=== PATIENT | female | born 1980 | race Caucasian/White ===

== ENCOUNTER → 2023-02-11 | Outpatient (CLI) | payer BC ==
[2023-02-11 10:57] VITALS: BP 134/96; PULSE 99; RESP 16; TEMP 98
--- NOTE | 2023-02-11 11:34 | P.GSHP ---
History of Present Illness H&P Date: 02/11/23 Chief Complaint: breast pain Saloni is a 42 year old self referred patient with a complaint of breast pain. She had a bilateral mammogram on 12-09-22 which was BIRAD 2, and a bilateral ultrasound with aspiration of multiple cyst bilaterally on 12-09-22. No cytology was obtained. Has had cyst aspirated multiple times in the past. Usually aspiration results in decreased pain for approximately 6 months. However, this time it appears that more cyst have recurred and the pain has not resolved. She has been seen by Dr. Dari Rao a breast surgeon. She has never had any breast biopsies. She's never had any surgery on her breast. She has not had a period for 12 years. She has a Mirena IUD in place, this typically has progesterone slow-release function. On a scale of 1 to 10 the pain comes in 8 or 9 limiting her physical activity. At this present time it is approximately a 3. Caffeine: One cup of coffee per day Nicotine: vapes, stopped cigarettes in 2006 Chocolate: Occasional Dianna every 5 years, last time placed in 2019 BCP: < 2 years DEPO: 1 years cyst in her ovaries Hormonal History: menarche: 11 , breast fed: yes, age at first : 27 periods regular LMP: 11 years ago Family History: none Surgical History: 2 tonsil Hemorrhoidectomy Medical history: none Social History: nicotine: vape daily alcohol: none drugs: none - Constitutional Constitutional: Reports sweats - EENT Eyes: denies blurred vision, denies pain Ears: deny: decreased hearing, tinnitus Ears, nose, mouth and throat: Reports headache, Denies sore throat - Breasts Breasts: bilateral: as per HPI - Cardiovascular Cardiovascular: Denies chest pain, Denies shortness of breath - Respiratory Respiratory: Denies cough, Denies 7 - Gastrointestinal Gastrointestinal: Denies abdominal pain, Denies diarrhea, Denies nausea, Denies vomiting - Genitourinary (Female) Genitourinary: Denies dysuria, Denies hematuria - Menstruation Menstruation: Reports as per HPI - Integumentary Integumentary: Denies pruritus, Denies rash - Neurological Neurological: Denies numbness, Denies weakness - Psychiatric Psychiatric: Reports anxiety, Reports depression - Endocrine Endocrine: Reports fatigue - Hematologic/Lymphatic Comment: none - Allergic/Immunologic Allergic/Immunologic: Reports seasonal allergies Past Medical History Additional Past Medical History / Comment(s): depression History of Any Multi-Drug Resistant Organisms: None Reported Past Surgical History: Section, Tonsillectomy Additional Past Surgical History / Comment(s): section x2 Past Anesthesia/Blood Transfusion Reactions: No Reported Reaction Past Psychological History: Anxiety, Depression Smoking Status: Vaper Past Alcohol Use History: None Reported Past Drug Use History: None Reported Medications and Allergies Home Medications Medication Instructions Recorded Confirmed Type Venlafaxine HCl ER [Effexor Xr] 75 mg PO DAILY 02/11/23 02/11/23 History Allergies Allergy/AdvReac Type Severity Reaction Status Date / Time metronidazole [From Flagyl] Allergy Rash/Hives Verified 02/11/23 10:53 Penicillins Allergy Rash/Hives Verified 02/11/23 10:53 Surgical - Exam Vital Signs Temp Pulse Resp BP Pulse Ox 98.0 F 99 16 134/96 99 02/11/23 10:53 02/11/23 10:53 02/11/23 10:53 02/11/23 10:53 02/11/23 10:53 - General moderate distress - Eyes normal ocular movement - Neck trachea midline - Respiratory normal respiratory effort, clear to auscultation - Cardiovascular Rhythm: regular Heart Sounds: normal: S1, S2 - Abdomen Abdomen: soft, non tender, no guarding, no rigid, no rebound - Integumentary normal turgor - Neurologic no disoriented, no combative - Musculoskeletal normal gait, normal posture - Psychiatric oriented to time, oriented to person, oriented to place, speech is normal, memory intact Breast Exam: BRA: 34DD Inspection: Bilateral grade 2 ptosis Palpation: Right breast: Multiple positional exam fibrocystic changes appears to have cystic-like lesions in the approximate 12 o'clock position as well as the 6 o'clock position Right axilla: No adenopathy of concern Left breast: Multi-positional exam fibrocystic changes appears to have cystic lesion approximately the 9 o'clock position, Left axilla: No adenopathy of concern Both breasts are very tender to palpation no discrete masses of concern are palpated in either breast Results Mammogram and ultrasound reports reviewed Assessment and Plan Assessment: Impression: Mastodynia Multiple bilateral breast cysts Progesterone releasing IUD in place Plan: Ultrasound-guided cyst aspiration of the cyst that are painful at this present time The patient is going to have her IUD removed The patient has been at counseled on stopping all caffeine intake as well as nicotine The patient will attempt primrose oil and vitamin E The patient will follow up after the above for possible tamoxifen therapy CC: Kalpana Kc
== END ==
LOC: WWCWWP 10:38
PROVIDERS: ATTEND Surgery
DX: N60.01 Solitary cyst of right breast (principal); N60.02 Solitary cyst of left breast; N64.4 Mastodynia; Z88.0 Allergy status to penicillin; Z88.8 Allergy status to other drugs, medicaments and biological substances; F32.A Depression, unspecified

== ENCOUNTER → 2023-03-17 | Day surgery (SDC) | payer BC ==
--- NOTE | 2023-03-18 13:17 | USB ---
Risk Values: Venecia 5 year model risk: 0.5%. NCI Lifetime model risk: 6.5%. Pathology Description: Location: 3 o'clock. Pathology Description: Location: 3 o'clock. Pathology Description: Location: 11 o'clock. Pathology Description: Location: 11 o'clock. The ultrasound guided cyst aspiration procedure was explained to the patient. The risks, benefits, alternatives were discussed. An informed consent was then obtained. A time out was performed. The patient was placed in supine positioning for imaging and for the procedure. The overlying skin was prepped with ChloraPrep and sterilely draped in usual sterile fashion. The most painful sites of the patient's bilateral breasts were scanned. The 3 dominant cysts in the upper outer aspect of the left breast, measuring up to 1.4 cm (3:00 position) are identified for aspiration. The 2 dominant cysts in the upper outer aspect of the right breast measuring up to 2.0 cm are identified for aspiration (11:00 position). A total of 10 ml 1% lidocaine was used as anesthetic into the skin and deeper breast tissue up to area of concern at the site of concern in both breasts. Under ultrasound guidance, an 18-gauge spinal needle was advanced into each cyst and aspiration yielded just under 5 mL of fluid from each breast . Fluid in the left breast was muddy brown. Fluid from the right breast was dark brown with some debris. Fluid was discarded. No clip was deposited. Good hemostasis was obtained with direct pressure. The patient tolerated the procedure well without any immediate complication. The patient was discharged to home in stable condition. IMPRESSION: Successful ultrasound guided cyst aspiration of both breasts for symptomatic relief (3 cysts in the left breast and 2 cysts in the right breast). Fluid was discarded. No clip placed. Just under 5 mL total fluid from each breast. Pathology Results: Specimen not sent to lab. Electronically signed and approved by: Shanika Marin M.D. Radiologist
== END ==
LOC: RADUSWWP 12:45
PROVIDERS: ATTEND Surgery
DX: N60.01 Solitary cyst of right breast (principal); N60.02 Solitary cyst of left breast
CPT/HCPCS: 76942

== ENCOUNTER → 2023-09-08 | Outpatient (CLI) | payer BC ==
--- NOTE | 2023-09-08 15:07 | P.PN ---
Subjective Progress Note Date: 09/08/23 Principal diagnosis: breast pain History of Present Illness H&P Date: 02/11/23 Chief Complaint: breast pain Saloni is a 42 year old self referred patient with a complaint of breast pain. She had a bilateral mammogram on 12-09-22 which was BIRAD 2, and a bilateral ultrasound with aspiration of multiple cyst bilaterally on 12-09-22. No cytology was obtained. Has had cyst aspirated multiple times in the past. Usually aspiration results in decreased pain for approximately 6 months. However, this time it appears that more cyst have recurred and the pain has not resolved. She has been seen by Dr. Dari Rao a breast surgeon. She has never had any breast biopsies. She's never had any surgery on her breast. She has not had a period for 12 years. She has a Mirena IUD in place, this typically has progesterone slow-release function. On a scale of 1 to 10 the pain comes in 8 or 9 limiting her physical activity. At this present time it is approximately a 3. She had additional cyst aspirated on 03-17-23 about 5 cc of fluid was aspirated from each breast, no fluid was sent, and no clips were placed. She stopped both the nicotine (vaping) and caffeine until June but the cysts returned so she restarted. She also stopped the vitamin E and [place] oil. Her IUD was removed April 05. She can feel nodules in both breast since May, they are getting bigger. Her periods are regular now and the pain is not related to her periods. Caffeine: One cup of coffee per day Nicotine: vapes, stopped cigarettes in 2006 Chocolate: Occasional Dianna every 5 years, last time placed in 2019; this was removed in April 05 2023 BCP: < 2 years DEPO: 1 years cyst in her ovaries Hormonal History: menarche: 11 , breast fed: yes, age at first : 27 periods regular LMP: 11 years ago Family History: none Surgical History: 2 tonsil Hemorrhoidectomy internal hemorrhoid removed Medical history: none Social History: nicotine: vape daily alcohol: none drugs: none - Constitutional Constitutional: Reports sweats - EENT Eyes: denies blurred vision, denies pain Ears: deny: decreased hearing, tinnitus Ears, nose, mouth and throat: Reports headache, Denies sore throat - Breasts Breasts: bilateral: as per HPI - Cardiovascular Cardiovascular: Denies chest pain, Denies shortness of breath - Respiratory Respiratory: Denies cough - Gastrointestinal Gastrointestinal: Denies abdominal pain, Denies diarrhea, Denies nausea, Denies vomiting - Genitourinary (Female) Genitourinary: Denies dysuria, Denies hematuria - Menstruation Menstruation: Reports as per HPI - Integumentary Integumentary: Denies pruritus, Denies rash - Neurological Neurological: Denies numbness, Denies weakness - Psychiatric Psychiatric: Reports anxiety, Reports depression - Endocrine Endocrine: Reports fatigue - Hematologic/Lymphatic Comment: none - Allergic/Immunologic Allergic/Immunologic: Reports seasonal allergies Past Medical History Additional Past Medical History / Comment(s): depression History of Any Multi-Drug Resistant Organisms: None Reported Past Surgical History: Section, Tonsillectomy Additional Past Surgical History / Comment(s): section x2 Past Anesthesia/Blood Transfusion Reactions: No Reported Reaction Past Psychological History: Anxiety, Depression Smoking Status: Vaper Past Alcohol Use History: None Reported Past Drug Use History: None Reported Medications and Allergies Home Medications Medication Instructions Recorded Confirmed Type Venlafaxine HCl ER [Effexor Xr] 75 mg PO DAILY 02/11/23 02/11/23 History Allergies Allergy/AdvReac Type Severity Reaction Status Date / Time metronidazole [From Flagyl] Allergy Rash/Hives Verified 02/11/23 10:53 Penicillins Allergy Rash/Hives Verified 02/11/23 10:53 Objective - Constitutional General appearance: Present: cooperative - EENT Eyes: Present: EOMI ENT: Present: hearing grossly normal - Neck Neck: Present: normal ROM - Respiratory Respiratory: bilateral: CTA - Cardiovascular Heart sounds: normal: S1, S2 - Integumentary Integumentary: Present: normal turgor - Musculoskeletal Musculoskeletal: Present: gait normal - Psychiatric Psychiatric: Present: A&O x's 3, appropriate affect, intact judgment & insight - Additional findings Additional findings: Breast Exam: BRA: 34DD Inspection: Bilateral grade 2 ptosis Palpation: Right breast: Multi-positional exam fibrocystic changes appears to have cystic- like lesions in the approximate 12 o'clock position as well as the 6 o'clock position, these are small in nature and nothing which I would aspirate today without ultrasound guidance Right axilla: No adenopathy of concern Left breast: Multi-positional exam fibrocystic changes appears to have cystic lesions throughout the plastic and which are small in nature nothing which I would aspirate without ultrasound guidance Left axilla: No adenopathy of concern Assessment and Plan Assessment: Impression: Mastodynia Multiple bilateral breast cysts Progesterone releasing IUD removed in March Patient did stop vaping and caffeine however the cyst seemed to recur so she restarted Plan: Bilateral Ultrasound-guided cyst aspiration of the cyst that are painful at this present time The patient has been at counseled on stopping all caffeine intake and vaping The patient will attempt primrose oil and vitamin E The patient will follow up after the above for possible tamoxifen therapy appointment with medical oncology to consider tamoxifen secondary to the mastodynia bilateral mammogram in November 2023 with appointment CC: Kalpana Kc
[2023-09-08 15:11] VITALS: BP 122/84; PULSE 87; RESP 16; TEMP 98.9
== END ==
LOC: WWCWWP 14:30
PROVIDERS: ATTEND Surgery
DX: N64.4 Mastodynia (principal); N60.01 Solitary cyst of right breast; N60.02 Solitary cyst of left breast; F17.290 Nicotine dependence, other tobacco product, uncomplicated; F32.A Depression, unspecified; F41.9 Anxiety disorder, unspecified; Z88.0 Allergy status to penicillin; Z88.1 Allergy status to other antibiotic agents

== ENCOUNTER → 2023-10-14 | Outpatient (CLI) | payer BC ==
--- NOTE | 2023-10-14 13:43 | USB ---
Reason for Exam: Clinical finding. Patient History: 03/17/2023, US breast aspiration ea add LT on the Left side. 03/17/2023, US breast aspiration ea add LT on the Left side. 03/17/2023, US breast aspiration single RT on the Right side. 03/17/2023, US breast aspiration ea add RT on the Right side. 03/17/2023, US breast aspiration single LT on the Left side. Risk Values: Venecia 5 year model risk: 0.5%. NCI Lifetime model risk: 6.4%. Technique: Method: Whole Breast Handheld. Findings: The whole breast of both breasts, the axilla of both breasts and the retroareolar of both breasts were scanned. A complete US of all four quadrants of the breast , axilla, and retro-areolar region were reviewed. On the right, numerous cysts are present, largest located at the 10:00 position measuring 1.9 cm. Dense tissue is present throughout. On the left, numerous cysts are present, largest located at the 1:00 position measuring up to 2.7 cm. Dense tissues present throughout. No axillary lymphadenopathy. Patient due for annual exam in 2 months. This can be performed in diagnostic clinic. Overall Assessment: Probably benign, BI-RAD 3 Management: Diagnostic Mammogram of both breasts in 2 months. In time for the patient's annual study. A clinical breast exam by your physician is recommended on an annual basis and results should be correlated with mammographic findings. This exam should not preclude additional follow-up of suspicious palpable abnormalities. Results were given to the patient verbally at the time of exam. Electronically signed and approved by: Shanika Marin M.D. Radiologist
== END | disposition home or self-care (01) ==
LOC: RADUSWWP 12:09
PROVIDERS: ATTEND Surgery
DX: N63.10 Unspecified lump in the right breast, unspecified quadrant (principal); N63.20 Unspecified lump in the left breast, unspecified quadrant

== ENCOUNTER → 2023-11-17 | Day surgery (SDC) | payer BC ==
--- NOTE | 2023-11-21 15:27 | USB ---
Risk Values: Venecia 5 year model risk: 0.5%. NCI Lifetime model risk: 6.4%. Pathology Description: Location: 12 o'clock. Pathology Description: Location: 11 o'clock. Pathology Description: Location: 11 o'clock. Pathology Description: Location: 3 o'clock. Pathology Description: Location: 3 o'clock. Pathology Description: Location: 2 o'clock. Pathology Description: Location: 2 o'clock. Pathology Results: Specimen not sent to lab. The ultrasound guided cyst aspiration procedure was explained to the patient. The risks, benefits, alternatives were discussed. An informed consent was then obtained. A time out was performed. Innumerable bilateral cysts are present scattered throughout dense fibroglandular tissue. The largest located on either side measuring up to 2.1 cm and as small as 6 mm are targeted for aspiration. Cysts in the region of greatest pain as indicated by the patient are targeted. These are located mostly along the lateral aspects of the breasts, on the right at 11 and 12:00 and on the left at 2 and 3:00. The patient was placed in supine positioning for imaging and for the procedure. The overlying skin was prepped with betadine and sterilely draped in usual sterile fashion. 6 ml 1% lidocaine was used as anesthetic into the skin and deeper breast tissue within each breast. RIGHT: Under ultrasound guidance, multiple passes were made in the right breast in order to aspirate a total of 7 cysts with an 18-gauge spinal needle. LEFT: Subsequently, multiple passes were made under ultrasound guidance in the left breast in order to aspirate a total of 10 cysts with an 18-gauge spinal needle. Once the needle was removed, hemostasis was obtained and dressing placed. A total of 25 mL brown fluid was aspirated and discarded. No clip was placed. No postprocedure mammogram. The patient tolerated the procedure well without any immediate complication. The patient was discharged to home in stable condition. IMPRESSION: Successful ultrasound guided multiple cyst aspiration, a total of 7 cysts on the right and a total of 10 cysts on the left. Cysts ranging in size from 6 mm up to 2.1 cm along the most symptomatically painful sites in either breast. A total of 25 mL brown fluid was aspirated and discarded. Procedure performed for symptomatic relief. No specimens were sent. Management: Diagnostic Mammogram of both breasts in 1 month. Patient had her last outside mammogram on 12/12/2022. Recommend bilateral diagnostic mammograms in 1 month. Please obtain outside priors for comparison. Further clinical management of patient's bilateral breast pain. Electronically signed and approved by: Shanika Marin M.D. Radiologist
== END ==
LOC: RADUSWWP 12:42
PROVIDERS: ATTEND Surgery
DX: N63.0 Unspecified lump in unspecified breast (principal)
CPT/HCPCS: 76942

== ENCOUNTER → 2023-12-12 | Outpatient (CLI) | payer BC ==
--- NOTE | 2023-12-20 20:24 | MM ---
Reason for Exam: Additional evaluation requested from prior study. Last screening mammogram was performed 12 month(s) ago. Patient History: Menarche at age 12. First Full-Term at age 27. Patient has history of breast feeding. Patient used Hormonal Contraceptives for 15 years. 11/17/2023, US breast aspiration ea add RT on the Right side. 11/17/2023, US breast aspiration ea add RT on the Right side. 11/17/2023, US breast aspiration ea add RT on the Right side. 11/17/2023, US breast aspiration single RT on the Right side. 11/17/2023, US breast aspiration ea add LT on the Left side. 11/17/2023, US breast aspiration ea add LT on the Left side. 11/17/2023, US breast aspiration ea add LT on the Left side. 11/17/2023, US breast aspiration single LT on the Left side. 03/17/2023, US breast aspiration ea add LT on the Left side. 03/17/2023, US breast aspiration ea add LT on the Left side. 03/17/2023, US breast aspiration single RT on the Right side. 03/17/2023, US breast aspiration ea add RT on the Right side. 03/17/2023, US breast aspiration single LT on the Left side. Risk Values: Venecia 5 year model risk: 0.8%. NCI Lifetime model risk: 9.7%. Prior Study Comparison: 01/06/2021 Bilateral Diagnostic Mammogram, [facility]. 06/10/2021 Bilateral Screening Mammogram, [facility]. 06/16/2022 Bilateral Screening Mammogram, [facility]. 12/09/2022 Bilateral Diagnostic Mammogram, [facility]. 12/09/2022 Bilateral Diagnostic Ultrasound, [facility]. 10/14/2023 Bilateral US breast BILAT, [facility]. Tissue Density: The breasts are extremely dense, which lowers the sensitivity of mammography. Findings: The pattern is symmetrical. No significant interval change is evident. There are scattered punctate calcifications present bilaterally. No new suspicious cluster of microcalcifications is evident No suspicious groups of microcalcifications, spiculated or lobular masses, architectural distortion or other secondary signs of malignancy are mammographically apparent. Overall Assessment: Benign, BI-RAD 2 Management: Screening Mammogram of both breasts in 1 year. A negative mammogram report should not preclude additional follow up of suspicious palpable abnormalities. Patient should continue monthly self breast exam. A clinical breast exam by your physician is recommended on an annual basis and results should be correlated with mammographic findings. Electronically signed and approved by: Pranav Hutson D.O. Radiologis
== END | disposition home or self-care (01) ==
LOC: RADMAMWWP 10:42
PROVIDERS: ATTEND Surgery
DX: R92.8 Other abnormal and inconclusive findings on diagnostic imaging of breast (principal); R92.1 Mammographic calcification found on diagnostic imaging of breast
CPT/HCPCS: 77062; 77066

== ENCOUNTER → 2024-01-05 | Outpatient (CLI) | payer BC ==
--- NOTE | 2024-01-05 13:38 | P.PN ---
Subjective Progress Note Date: 01/05/24 Principal diagnosis: breast pain History of Present Illness H&P Date: 01-05-24 Chief Complaint: breast pain Saloni is a 43 year old self referred patient with a complaint of breast pain. She had a bilateral mammogram on 12-09-22 which was BIRAD 2, and a bilateral ultrasound with aspiration of multiple cyst bilaterally on 12-09-22. No cytology was obtained. Has had cyst aspirated multiple times in the past. Usually aspiration results in decreased pain for approximately 6 months. However, this time it appears that more cyst have recurred and the pain has not resolved. She has been seen by Dr. Dari Rao a breast surgeon. She has never had any breast biopsies. She's never had any surgery on her breast. She has not had a period for 12 years. She has a Mirena IUD in place, this typically has progesterone slow-release function. On a scale of 1 to 10 the pain comes in 8 or 9 limiting her physical activity. At this present time it is approximately a 3. She had additional cyst aspirated on 03-17-23 about 5 cc of fluid was aspirated from each breast, no fluid was sent, and no clips were placed. In the past she stopped both nicotine (vaping) and caffeine but the cysts returned so she restarted. She also stopped the vitamin E and [place] oil. Her IUD was removed April 05, 2023. She can feel nodules in both breast since May, they are getting bigger. Her periods are regular now and the pain is not related to her periods. patient underwent a bilateral breast ultrasound on 10-14-2023. The ultrasound revealed bilateral breast cysts. I have called the patienton 10-27-23 with the results. She states she continues to have breast pain and would like to have the cyst drained. We are asking that she be scheduled for cyst drainage. Additionally the patient is having pain and would like to consider tamoxifen and an appointment with medical oncology has been recommended. If the patient does not have relief with cyst drainage and tamoxifen she has requested bilateral mastectomies. I will see her again in November 2023 after her mammogram. In the interim 1. ultrasound-guided cyst drainage 2. appointment medical oncology for consideration of tamoxifen 3. follow-up in November after bilateral mammogram 4. lifestyle modifications abstaining from nicotine/caffeine/consider primrose oil bilateral mammogram on 12-02-23 BIRAD 2 personally reviewed very dense She had cyst drained in Oct, but within two weeks the pain recurred. The pain is a 6-7 on a constant basis. It affects her daily life. It affects her ability to sleep. It is very debilitating for her secondary to the pain. The painis not cyclical in nature. The pain is stabbing and constant bilateral. It is worse with movement. She is not complaining of any fever or chills. She does not have any history of trauma to her breast. She has never had any surgery on her breast. The pain is significant enough that she would like to have the breast removed. She is not interested in reconstruction. Caffeine: One cup of coffee per day Nicotine: vapes, stopped cigarettes in 2006 Chocolate: Occasional Dianna every 5 years, last time placed in 2019; this was removed in April 05 2023 BCP: < 2 years DEPO: 1 years cyst in her ovaries Hormonal History: menarche: 11 , breast fed: yes, age at first : 27 periods regular LMP: 11 years ago Family History: none Surgical History: 2 tonsil Hemorrhoidectomy internal hemorrhoid removed Medical history: none Social History: nicotine: vape daily alcohol: none drugs: none - Constitutional Constitutional: Reports sweats - EENT Eyes: denies blurred vision, denies pain Ears: deny: decreased hearing, tinnitus Ears, nose, mouth and throat: Reports headache, Denies sore throat - Breasts Breasts: bilateral: as per HPI - Cardiovascular Cardiovascular: Denies chest pain, Denies shortness of breath - Respiratory Respiratory: Denies cough - Gastrointestinal Gastrointestinal: Denies abdominal pain, Denies diarrhea, Denies nausea, Denies vomiting - Genitourinary (Female) Genitourinary: Denies dysuria, Denies hematuria - Menstruation Menstruation: Reports as per HPI - Integumentary Integumentary: Denies pruritus, Denies rash - Neurological Neurological: Denies numbness, Denies weakness - Psychiatric Psychiatric: Reports anxiety, Reports depression - Endocrine Endocrine: Reports fatigue - Hematologic/Lymphatic Comment: none - Allergic/Immunologic Allergic/Immunologic: Reports seasonal allergies Past Medical History Additional Past Medical History / Comment(s): depression History of Any Multi-Drug Resistant Organisms: None Reported Past Surgical History: Section, Tonsillectomy Additional Past Surgical History / Comment(s): section x2 Past Anesthesia/Blood Transfusion Reactions: No Reported Reaction Past Psychological History: Anxiety, Depression Smoking Status: Vaper Past Alcohol Use History: None Reported Past Drug Use History: None Reported Medications and Allergies Home Medications Medication Instructions Recorded Confirmed Type Venlafaxine HCl ER [Effexor Xr] 75 mg PO DAILY 02/11/23 02/11/23 History Allergies Allergy/AdvReac Type Severity Reaction Status Date / Time metronidazole [From Flagyl] Allergy Rash/Hives Verified 02/11/23 10:53 Penicillins Allergy Rash/Hives Verified 02/11/23 10:53 Objective - Vital Signs Vital signs: Intake & Output 01/04/24 01/05/24 01/05/24 18:59 06:59 18:59 Weight 63.503 kg - Constitutional General appearance: Present: cooperative - EENT Eyes: Present: EOMI ENT: Present: hearing grossly normal - Neck Neck: Present: normal ROM - Respiratory Respiratory: bilateral: CTA - Cardiovascular Heart sounds: normal: S1, S2 - Gastrointestinal General gastrointestinal: Present: soft - Integumentary Integumentary: Present: normal turgor - Musculoskeletal Musculoskeletal: Present: gait normal - Psychiatric Psychiatric: Present: A&O x's 3, appropriate affect, intact judgment & insight - Additional findings Additional findings: Breast Exam: BRA: 34DD Inspection: Bilateral grade 2 ptosis Palpation: Right breast: Multi-positional exam fibrocystic changes, very tender to palpation throughout the breast Right axilla: No adenopathy of concern Left breast: Multi-positional exam fibrocystic tender to palpation throughout the breast Left axilla: No adenopathy of concern Assessment and Plan Assessment: Impression: Mastodynia affecting daily life Multiple bilateral breast cysts Progesterone releasing IUD removed in March, Patient did stop vaping and caffeine however the cyst seemed to recur so she restarted; she is going to stop vaping again and stop caffeine at this time Plan: The patient has been at counseled on stopping all caffeine intake and vaping The patient will attempt primrose oil and vitamin E The patient will follow up after the above for possible tamoxifen therapy appointment with medical oncology to consider tamoxifen secondary to the mastodynia bilateral mammogram in November 2023 with appointment, mammogram reveals very dense breast I would recommend an MRI if she is not going to have a bilateral mastectomy The patient would like to have a bilateral mastectomy secondary to the severe breast pain She is not interested in reconstruction She is not transgender and identifies as she her. She is a biologic female CC: Kalpana Kc
[2024-01-05 13:40] VITALS: BP 123/81; PULSE 82; RESP 17; TEMP 97.9
== END ==
LOC: WWCWWP 12:45
PROVIDERS: ATTEND Surgery
DX: R92.8 Other abnormal and inconclusive findings on diagnostic imaging of breast (principal); N64.4 Mastodynia; N60.01 Solitary cyst of right breast; N60.02 Solitary cyst of left breast; F17.290 Nicotine dependence, other tobacco product, uncomplicated; Z88.0 Allergy status to penicillin; Z88.1 Allergy status to other antibiotic agents

== ENCOUNTER → 2024-03-28 | Outpatient (CLI) | payer BC ==
[2024-03-28 13:42] VITALS: BP 107/80; PULSE 72; RESP 16; TEMP 98.1
--- NOTE | 2024-03-28 14:01 | P.PN ---
Subjective Progress Note Date: 03/28/24 Principal diagnosis: severe mystodynia Subjective Progress Note Date: 01/05/24 Principal diagnosis: breast pain History of Present Illness H&P Date: 01-05-24 Chief Complaint: breast pain Saloni is a 43 year old self referred patient with a complaint of breast pain. She had a bilateral mammogram on 12-09-22 which was BIRAD 2, and a bilateral ultrasound with aspiration of multiple cyst bilaterally on 12-09-22. No cytology was obtained. Has had cyst aspirated multiple times in the past. Usually aspiration results in decreased pain for approximately 6 months. However, this time it appears that more cyst have recurred and the pain has not resolved. She has been seen by Dr. Dari Rao a breast surgeon. She has never had any breast biopsies. She's never had any surgery on her breast. She has not had a period for 12 years. She has a Mirena IUD in place, this typically has progesterone slow-release function. On a scale of 1 to 10 the pain comes in 8 or 9 limiting her physical activity. At this present time it is approximately a 3. She had additional cyst aspirated on 03-17-23 about 5 cc of fluid was aspirated from each breast, no fluid was sent, and no clips were placed. In the past she stopped both nicotine (vaping) and caffeine but the cysts returned so she restarted. She also stopped the vitamin E and [place] oil. Her IUD was removed April 05, 2023. She can feel nodules in both breast since May, they are getting bigger. Her periods are regular now and the pain is not related to her periods. patient underwent a bilateral breast ultrasound on 10-14-2023. The ultrasound revealed bilateral breast cysts. I have called the patient on 10-27-23 with the results. She states she continues to have breast pain and would like to have the cyst drained. We are asking that she be scheduled for cyst drainage. Additionally the patient is having pain and would like to consider tamoxifen and an appointment with medical oncology has been recommended. If the patient does not have relief with cyst drainage and tamoxifen she has requested bilateral mastectomies. I will see her again in November 2023 after her mammogram. In the interim 1. ultrasound-guided cyst drainage 2. appointment medical oncology for consideration of tamoxifen 3. follow-up in November after bilateral mammogram 4. lifestyle modifications abstaining from nicotine/caffeine/consider primrose oil bilateral mammogram on 12-02-23 GALA Landeros personally reviewed very dense She had cyst drained in Oct, but within two weeks the pain recurred. The pain is a 6-7 on a constant basis. It affects her daily life. It affects her ability to sleep. It is very debilitating for her secondary to the pain. The painis not cyclical in nature. The pain is stabbing and constant bilateral. It is worse with movement. She is not complaining of any fever or chills. She does not have any history of trauma to her breast. She has never had any surgery on her breast. The pain is significant enough that she would like to have the breast removed. She is not interested in reconstruction. 03-28-24 Bilateral breast pain affecting daily living. note medical oncology 01-13-24 reviewed: conplaining of severe bresat congestion and pain and multiple bresat cyst aspirated in the past; recommended tamoxifen She used the tamoxifen for several months without resolution of any breast pain. The pain continues to be incapacitating on a daily basis. It would be about a 7 at this time. Despite stopping caffeine intake and vaping. She is well aware that she does not have any malignant disease in her breast but secondary to the breast pain would like to have bilateral mastectomies. She is not interested in seeing a plastic surgery or having reconstruction. Caffeine: One cup of coffee per day Nicotine: vapes, stopped cigarettes in 2006 Chocolate: Occasional Dianna every 5 years, last time placed in 2019; this was removed in April 05 2023 BCP: < 2 years DEPO: 1 years cyst in her ovaries Hormonal History: menarche: 11 , breast fed: yes, age at first : 27 periods regular LMP: 11 years ago Family History: none Surgical History: 2 tonsil Hemorrhoidectomy internal hemorrhoid removed Medical history: none Social History: nicotine: vape daily alcohol: none drugs: none - Constitutional Constitutional: Reports sweats - EENT Eyes: denies blurred vision, denies pain Ears: deny: decreased hearing, tinnitus Ears, nose, mouth and throat: Reports headache, Denies sore throat - Breasts Breasts: bilateral: as per HPI - Cardiovascular Cardiovascular: Denies chest pain, Denies shortness of breath - Respiratory Respiratory: Denies cough - Gastrointestinal Gastrointestinal: Denies abdominal pain, Denies diarrhea, Denies nausea, Denies vomiting - Genitourinary (Female) Genitourinary: Denies dysuria, Denies hematuria - Menstruation Menstruation: Reports as per HPI - Integumentary Integumentary: Denies pruritus, Denies rash - Neurological Neurological: Denies numbness, Denies weakness - Psychiatric Psychiatric: Reports anxiety, Reports depression - Endocrine Endocrine: Reports fatigue - Hematologic/Lymphatic Comment: none - Allergic/Immunologic Allergic/Immunologic: Reports seasonal allergies Past Medical History Additional Past Medical History / Comment(s): depression History of Any Multi-Drug Resistant Organisms: None Reported Past Surgical History: Section, Tonsillectomy Additional Past Surgical History / Comment(s): section x2 Past Anesthesia/Blood Transfusion Reactions: No Reported Reaction Past Psychological History: Anxiety, Depression Smoking Status: Vaper Past Alcohol Use History: None Reported Past Drug Use History: None Reported Medications and Allergies Home Medications Medication Instructions Recorded Confirmed Type Venlafaxine HCl ER [Effexor Xr] 75 mg PO DAILY 02/11/23 02/11/23 History Allergies Allergy/AdvReac Type Severity Reaction Status Date / Time metronidazole [From Flagyl] Allergy Rash/Hives Verified 02/11/23 10:53 Penicillins Allergy Rash/Hives Verified 02/11/23 10:53 Objective - Vital Signs Vital signs: Intake & Output 03/27/24 03/28/24 03/28/24 18:59 06:59 18:59 Weight 59.874 kg - Constitutional General appearance: Present: cooperative - EENT ENT: Present: hearing grossly normal - Neck Neck: Present: normal ROM - Respiratory Respiratory: bilateral: CTA - Cardiovascular Rhythm: regular Heart sounds: normal: S1, S2 - Gastrointestinal General gastrointestinal: Present: soft - Integumentary Integumentary: Present: normal turgor - Musculoskeletal Musculoskeletal: Present: gait normal - Psychiatric Psychiatric: Present: A&O x's 3, appropriate affect, intact judgment & insight - Additional findings Additional findings: Breast Exam: BRA: 34DD Inspection: Bilateral grade 2 ptosis Palpation: Right breast: Multi-positional exam fibrocystic changes, very tender to palpation throughout the breast Right axilla: No adenopathy of concern Left breast: Multi-positional exam fibrocystic tender to palpation throughout the breast Left axilla: No adenopathy of concern Assessment and Plan Assessment: Impression: Mastodynia affecting daily life Multiple bilateral breast cysts Progesterone releasing IUD removed in March, Patient did stop vaping and caffeine however the pain She started tamoxifen without resolution of the pain Plan: The patient has been at counseled on stopping all caffeine intake and vaping/this did not resolve pain The patient will attempt primrose oil and vitamin E/this did not resolve the pain The patient attempted tamoxifen therapy which did not resolve the pain appointment with medical oncology to consider tamoxifen secondary to the mastodynia The patient would like to have a bilateral mastectomy secondary to the severe breast pain She is not interested in reconstruction She is not transgender and identifies as she her. She is a biologic female Risk and benefits of the procedure were discussed with the patient. Risk include but are not limited to bleeding, infection, reaction to the anesthetic. Wound infection is a risk as his seroma of the chest wall. She understands and wishes to proceed. Additionally we have discussed her 's concerns and at this time she would like to proceed with the bilateral mastectomy. She is not interested in breast reconstruction. We have discussed the option of nipple sparing mastectomy with reconstruction and she does not want that to be done. She would like to have the breast removed. CC: Kalpana Kc
== END ==
LOC: WWCWWP 13:22
PROVIDERS: ATTEND Surgery
DX: N64.4 Mastodynia (principal); N60.01 Solitary cyst of right breast; N60.02 Solitary cyst of left breast; F17.290 Nicotine dependence, other tobacco product, uncomplicated; Z88.0 Allergy status to penicillin; Z88.1 Allergy status to other antibiotic agents

== ENCOUNTER → 2024-07-27 | Outpatient (CLI) | payer BC ==
[2024-07-27 11:40] VITALS: BP 120/70; PULSE 78; RESP 16; TEMP 98.1
--- NOTE | 2024-07-27 12:04 | P.PN ---
Subjective Progress Note Date: 07/27/24 Principal diagnosis: bilateral mastodynia 01/05/24 Principal diagnosis: breast pain History of Present Illness H&P Date: 01-05-24 Chief Complaint: breast pain Saloni is a 43 year old self referred patient with a complaint of breast pain. She had a bilateral mammogram on 12-09-22 which was BIRAD 2, and a bilateral ultrasound with aspiration of multiple cyst bilaterally on 12-09-22. No cytology was obtained. Has had cyst aspirated multiple times in the past. Usually aspiration results in decreased pain for approximately 6 months. However, this time it appears that more cyst have recurred and the pain has not resolved. She has been seen by Dr. Dari Rao a breast surgeon. She has never had any breast biopsies. She's never had any surgery on her breast. She has not had a period for 12 years. She has a Mirena IUD in place, this typically has progesterone slow-release function. On a scale of 1 to 10 the pain comes in 8 or 9 limiting her physical activity. At this present time it is approximately a 3. She had additional cyst aspirated on 03-17-23 about 5 cc of fluid was aspirated from each breast, no fluid was sent, and no clips were placed. In the past she stopped both nicotine (vaping) and caffeine but the cysts returned so she restarted. She also stopped the vitamin E and [place] oil. Her IUD was removed April 05, 2023. She can feel nodules in both breast since May, they are getting bigger. Her periods are regular now and the pain is not related to her periods. patient underwent a bilateral breast ultrasound on 10-14-2023. The ultrasound r evealed bilateral breast cysts. I have called the patient on 10-27-23 with the results. She states she continues to have breast pain and would like to have the cyst drained. We are asking that she be scheduled for cyst drainage. Additionally the patient is having pain and would like to consider tamoxifen and an appointment with medical oncology has been recommended. If the patient does not have relief with cyst drainage and tamoxifen she has requested bilateral mastectomies. I will see her again in November 2023 after her mammogram. In the interim 1. ultrasound-guided cyst drainage 2. appointment medical oncology for consideration of tamoxifen 3. follow-up in November after bilateral mammogram 4. lifestyle modifications abstaining from nicotine/caffeine/consider primrose oil bilateral mammogram on 12-02-23 BIRAD 2 personally reviewed very dense She had cyst drained in Oct, but within two weeks the pain recurred. The pain is a 6-7 on a constant basis. It affects her daily life. It affects her ability to sleep. It is very debilitating for her secondary to the pain. The painis not cyclical in nature. The pain is stabbing and constant bilateral. It is worse with movement. She is not complaining of any fever or chills. She does not have any history of trauma to her breast. She has never had any surgery on her breast. The pain is significant enough that she would like to have the breast removed. She is not interested in reconstruction. 03-28-24 Bilateral breast pain affecting daily living. note medical oncology 01-13-24 reviewed: complaining of severe breast congestion and pain and multiple breast cyst aspirated in the past; recommended tamoxifen She used the tamoxifen for several months without resolution of any breast pain. The pain continues to be incapacitating on a daily basis. It would be about a 7 at this time. Despite stopping caffeine intake and vaping. She is well aware that she does not have any malignant disease in her breast but secondary to the breast pain would like to have bilateral mastectomies. She is not interested in seeing a plastic surgery or having reconstruction. 07-27-24 Saloni is still complaining of bilateral breast pain, it has not resolved with stopping vaping and caffeine, she has tried primrose oil and this does not resolve the pain, she has tried tamoxifen and this does not resolve the pain. The pain is incapacitating for her it is continual and is in both breast. She would like to have the breast removed. bilateral mammogram 12-12-23 BIRAD 2. At this time she is considering talking to a plastic surgeon. She is seen in conjunction with her . Caffeine: One cup of coffee per day Nicotine: vapes, stopped cigarettes in 2006 Chocolate: Occasional Dianna every 5 years, last time placed in 2019; this was removed in April 05 2023 BCP: < 2 years DEPO: 1 years cyst in her ovaries Hormonal History: menarche: 11 , breast fed: yes, age at first : 27 periods regular LMP: 11 years ago Family History: none Surgical History: 2 tonsil Hemorrhoidectomy internal hemorrhoid removed Medical history: none Social History: nicotine: vape daily alcohol: none drugs: none - Constitutional Constitutional: Reports sweats - EENT Eyes: denies blurred vision, denies pain Ears: deny: decreased hearing, tinnitus Ears, nose, mouth and throat: Reports headache, Denies sore throat - Breasts Breasts: bilateral: as per HPI - Cardiovascular Cardiovascular: Denies chest pain, Denies shortness of breath - Respiratory Respiratory: Denies cough - Gastrointestinal Gastrointestinal: Denies abdominal pain, Denies diarrhea, Denies nausea, Denies vomiting - Genitourinary (Female) Genitourinary: Denies dysuria, Denies hematuria - Menstruation Menstruation: Reports as per HPI - Integumentary Integumentary: Denies pruritus, Denies rash - Neurological Neurological: Denies numbness, Denies weakness - Psychiatric Psychiatric: Reports anxiety, Reports depression - Endocrine Endocrine: Reports fatigue - Hematologic/Lymphatic Comment: none - Allergic/Immunologic Allergic/Immunologic: Reports seasonal allergies Past Medical History Additional Past Medical History / Comment(s): depression History of Any Multi-Drug Resistant Organisms: None Reported Past Surgical History: Section, Tonsillectomy Additional Past Surgical History / Comment(s): section x2 Past Anesthesia/Blood Transfusion Reactions: No Reported Reaction Past Psychological History: Anxiety, Depression Smoking Status: Vaper Past Alcohol Use History: None Reported Past Drug Use History: None Reported Medications and Allergies Home Medications Medication Instructions Recorded Confirmed Type Venlafaxine HCl ER [Effexor Xr] 75 mg PO DAILY 02/11/23 02/11/23 History Allergies Allergy/AdvReac Type Severity Reaction Status Date / Time metronidazole [From Flagyl] Allergy Rash/Hives Verified 02/11/23 10:53 Penicillins Allergy Rash/Hives Verified 02/11/23 10:53 Objective - Vital Signs Vital signs: Vital Signs Temp 98.1 F 07/27/24 11:34 Pulse 78 07/27/24 11:34 Resp 16 07/27/24 11:34 BP 120/70 07/27/24 11:34 Pulse Ox 98 07/27/24 11:34 FiO2 Intake & Output 07/26/24 07/27/24 07/27/24 18:59 06:59 18:59 Weight 63.503 kg - Constitutional General appearance: Present: cooperative - EENT Eyes: Present: EOMI ENT: Present: hearing grossly normal - Neck Neck: Present: normal ROM - Respiratory Respiratory: bilateral: CTA - Cardiovascular Rhythm: regular Heart sounds: normal: S1, S2 - Gastrointestinal General gastrointestinal: Present: soft - Integumentary Integumentary: Present: normal turgor - Musculoskeletal Musculoskeletal: Present: gait normal - Psychiatric Psychiatric: Present: A&O x's 3, appropriate affect, intact judgment & insight - Additional findings Additional findings: Breast Exam: BRA: 34DD Inspection: Bilateral grade 2 ptosis Palpation: Right breast: Multi-positional exam fibrocystic changes, very tender to palpation throughout the breast Right axilla: No adenopathy of concern Left breast: Multi-positional exam fibrocystic tender to palpation throughout the breast Left axilla: No adenopathy of concern Assessment and Plan Assessment: Impression: Mastodynia affecting daily life Multiple bilateral breast cysts Progesterone releasing IUD removed in March, Patient did stop vaping and caffeine however the pain is persistant She started tamoxifen without resolution of the pain Plan: Bilateral mastectomy, she is going to see a plastic surgeon prior to the procedure She is not transgender and identifies as she her. She is to decide if she would like to have reconstruction. If the plastic surgeon is unable to coordinate with her surgery date she may consider bilateral mastectomy leaving redundant tissue for reconstruction in the future.a biologic female Risk and benefits of the procedure were discussed with the patient. Risk include but are not limited to bleeding, infection, reaction to the anesthetic. Wound infection is a risk as his seroma of the chest wall. She understands and wishes to proceed. Additionally we have discussed her 's concerns and at this time she would like to proceed with the bilateral mastectomy. She is not interested in breast reconstruction. We have discussed the option of nipple sparing mastectomy with reconstruction and she does not want that to be done. She would like to have the breast removed. This may not resolve her pain totally. CC: Kalpana Kc
== END ==
LOC: WWCWWP 10:46
PROVIDERS: ATTEND Surgery
DX: N64.4 Mastodynia (principal); N60.02 Solitary cyst of left breast; N60.01 Solitary cyst of right breast; F17.290 Nicotine dependence, other tobacco product, uncomplicated; Z90.13 Acquired absence of bilateral breasts and nipples; Z88.0 Allergy status to penicillin; Z88.1 Allergy status to other antibiotic agents

== ENCOUNTER 2024-08-07 06:39 | Day surgery (SDC) | payer BC ==
[2024-08-01 15:04] VITALS: BMI 22.7
[2024-08-07] MEDS: IV FLUID CONTINUATION 1,000 ML IV ONE (06:54)
[2024-08-07] MEDS ORDERED: HYDROmorphone 0.5 MG/0.5 ML SYRINGE IVP PRN (07:00)
[2024-08-07] MEDS: ONDANSETRON 4 MG/2 ML VIAL IVP ONE (07:26)
[2024-08-07] MEDS: DEXAMETHASONE SOD PHOSPHATE 4 MG/ML 1 ML VIAL IV ONE (07:26)
[2024-08-07] MEDS: ACETAMINOPHEN TAB 500 MG TAB PO PRN (07:26)
[2024-08-07] MEDS: LACTATED RINGERS 1,000 ML IV SCH (07:26)
[2024-08-07] MEDS: MIDAZOLAM 2 MG/2 ML VIAL IV PRN (08:02)
[2024-08-07] MEDS: fentaNYL (PF) 50 MCG/ML 2 ML AMP IVP STA (08:11)
[2024-08-07] MEDS: HEPARIN SODIUM,PORCINE 5,000 UNIT/ML 1 ML VIAL SQ PRN (08:21)
[2024-08-07] MEDS ORDERED: DEXAMETHASONE SOD PHOSPHATE 4 MG/ML 1 ML VIAL ONE (08:34)
[2024-08-07] MEDS ORDERED: PROPOFOL 10 MG/ML 20 ML VIAL IV ONE (08:34)
[2024-08-07] MEDS ORDERED: SODIUM CHLORIDE 0.9% (PF) 10 ML VIAL ONE (08:34)
[2024-08-07] MEDS ORDERED: SUCCINYLCHOLINE CHLORIDE 200 MG/10 ML VIAL IV ONE (08:34)
[2024-08-07] MEDS ORDERED: NEOSTIGMINE 1 MG/ML 10 ML VIAL ONE (08:34)
[2024-08-07] MEDS ORDERED: MIDAZOLAM 2 MG/2 ML VIAL ONE (08:34)
[2024-08-07] MEDS ORDERED: PHENYLEPHRINE 10 MG/ML VIAL ONE (08:34)
[2024-08-07] MEDS ORDERED: ROPIVACAINE 5 MG/ML 30 ML VIAL ONE (08:34)
[2024-08-07] MEDS ORDERED: GLYCOPYRROLATE 0.2 MG/ML 2 ML VIAL ONE (08:34)
[2024-08-07] MEDS ORDERED: LIDOCAINE 1% INJ 10MG/ML (20 ML MDV) ONE (08:34)
[2024-08-07] MEDS ORDERED: fentaNYL (PF) 50 MCG/ML 2 ML AMP ONE (08:34)
[2024-08-07] MEDS ORDERED: ROCURONIUM 10 MG/ML (5 ML VIAL) IV ONE (08:34)
--- NOTE | 2024-08-07 09:23 | P.ANPRN ---
Procedure Note - Anesthesia - Nerve Block Performed Bilateral Pec 1 and Pec 2 Single Time Out Performed: Yes Date of Procedure: 08/07/24 Location of Patient: PreOp Indication: Acute Post-Operative Pain, Requested by Surgeon Specifically requested for management of pain by DrDariel: Rani Julio Sedation Type: Sedate with meaningful contact maintained Preparation: Sterile Prep Position: Supine Catheter: None Needle Types: Pajunk Needle Gauge: 21 (100 mm) Ultrasound used to visualize needle placement: Yes Ultrasound used to observe medication spread: Yes Injectate: 0.5% Ropivacaine (see comment for volume) (20 cc + 10 cc of saline + 4mg of decadron on each side) Blood Aspirated: No Pain Paresthesia on Injection Noted: No Resistance on Injection: Normal Image Stored and Saved: Yes Events: Uneventful and Well Tolerated
[2024-08-07] MEDS: LIDOCAINE 1% INJ 10MG/ML (20 ML MDV) SQ ONE ×2 (09:28)
[2024-08-07] MEDS: LACTATED RINGERS 1,000 ML IV ONE (10:01)
--- NOTE | 2024-08-07 11:38 | P.BCAON ---
Date of Procedure: 08/07/24 Preoperative Diagnosis: Severe bilateral mastodynia Postoperative Diagnosis: Same Procedure(s) Performed: Bilateral mastectomies Anesthesia: NEELA, local Surgeon: Rani Julio Estimated Blood Loss (ml): 50 IV fluids (ml): 1,200 Pathology: other (Bilateral breast tissue) Condition: stable Disposition: floor Indications for Procedure: Bilateral severe mastodynia not relieved with conservative treatment Operative Findings: Dense breast tissue interdigitating close to the skin Description of Procedure: The patient was taken to the operative suite and following induction of anesthesia both breast were prepped and draped in a sterile fashion. The right side was approached initially. Markings had been placed in the preoperative area for both the right and left breast. The right breast skin markings were utilized to develop superior and inferior flaps. Dissection was performed in the subcutaneous tissue down to the chest wall. The breast tissue interdigitated very close to the skin. The tissue appeared to be very dense. The tissue was brought from medial to lateral being careful to maintain hemostasis using the electrocautery device as well as the harmonic scalpel. It was dissected laterally to the area of the axilla. At the lateral dissection there was tissue very close to the skin and a small piece of skin was resected. This area was closed using a 3-0 Vicryl suture and 4-0 Monocryl. The breast was removed. A superior suture was placed which was short and a lateral suture which was placed was long. The wound was irrigated. After we are sure that hemostasis was attained a #10 MANUEL drain was placed. The subcutaneous tissue was closed using 3-0 Vicryl suture. The skin was closed using 4-0 Monocryl. The left side was approached. The left skin markings had been placed in the preoperative area to develop superior and inferior flaps. Incisions were made and dissection was performed in the subcutaneous tissue down to the chest wall. The breast tissue again interdigitated very close to the skin. The tissue appeared to be very dense. The tissue was brought from medial to lateral off the pectoralis muscle using the electrocautery device as well as the harmonic scalpel. It was dissected laterally to the level of the axilla where it was divided. The breast was removed. A superior suture was placed which was short and a lateral suture was placed which was long. The wound was irrigated. After we were sure that hemostasis was attained a #10 MANUEL drain was placed. The subcutaneous tissue was closed using 3-0 Vicryl suture. The skin was closed using 4-0 Monocryl. Both drains were secured using a 3-0 nylon suture. 10 cc of 1% lidocaine were used to inject into the incisions. Surgical glue was placed. The patient tolerated the procedure in stable condition. All instrument and sponge counts were correct at the end of the case.
[2024-08-07] MEDS ORDERED: ONDANSETRON 4 MG/2 ML VIAL IVP PRN (11:39)
[2024-08-07] MEDS ORDERED: HYDROmorphone 1 MG/ML 1 ML SYRINGE IVP PRN (11:39)
[2024-08-07] MEDS ORDERED: NALOXONE 0.4 MG/ML 1 ML VIAL IV PRN (11:39)
[2024-08-07] MEDS: DEXTROSE 5%-0.45% NACL 1,000 ML IV SCH (13:18)
--- NOTE | 2024-08-07 16:50 | P.CONS ---
History of Present Illness - Reason for Consult Consult date: 08/07/24 Medical management Requesting physician: Rani Julio - Chief Complaint Mastectomy - History of Present Illness Consult was placed earlier today. I went to see the patient around 4:30 PM today. Patient was already discharged. Past Medical History Past Medical History: No Reported History Additional Past Medical History / Comment(s): depression History of Any Multi-Drug Resistant Organisms: None Reported Past Surgical History: Section, Tonsillectomy Additional Past Surgical History / Comment(s): section X2, hemorrhoidectomy X2. Past Anesthesia/Blood Transfusion Reactions: No Reported Reaction Smoking Status: Former smoker, Vaper - Past Family History Mother Family Medical History: Cancer Additional Family Medical History / Comment(s): Skin cancer. Medications and Allergies Home Medications Medication Instructions Recorded Confirmed Type Venlafaxine HCl ER [Effexor Xr] 75 mg PO QAM 02/11/23 08/07/24 History Cetirizine HCl [Zyrtec] 10 mg PO QAM 08/01/24 08/07/24 History oxyCODONE HCL [OxyIR] 5 mg PO Q6H PRN #14 tab 08/07/24 Rx Allergies Allergy/AdvReac Type Severity Reaction Status Date / Time metronidazole [From Flagyl] Allergy Rash/Hives Verified 08/07/24 07:07 Penicillins Allergy Rash/Hives Verified 08/07/24 07:07 Physical Exam Vitals: Vital Signs Temp Pulse Pulse Pulse Resp BP Pulse Ox 08/07/24 16:06 97.1 F L 72 16 105/71 08/07/24 14:50 78 16 102/69 08/07/24 14:11 76 16 111/78 08/07/24 13:50 90 16 114/79 08/07/24 13:35 84 16 111/69 08/07/24 13:18 86 16 110/72 95 08/07/24 13:13 100 F H 84 16 111/72 95 08/07/24 12:58 98.5 F 95 16 115/75 95 08/07/24 12:30 89 17 129/73 98 08/07/24 12:15 92 16 133/74 100 08/07/24 12:02 97.7 F 99 14 135/90 100 08/07/24 08:25 71 16 120/73 99 08/07/24 07:02 97.0 F L 83 16 127/75 99 Intake and Output 08/07/24 08/07/24 08/07/24 06:59 14:59 22:59 Intake Total 300 1350 Output Total 600 500 Balance 300 750 -500 Intake: IV 300 1350 Output: Urine 550 500 Estimated Blood Loss 50 Other: # Voids 1 1 Weight 66 kg
[2024-08-07] MEDS: HYDROcodone/APAP 5-325MG 1 EACH TAB PO PRN (21:15)
[2024-08-07] MEDS: HEPARIN SODIUM,PORCINE 5,000 UNIT/ML 1 ML VIAL SQ SCH (23:47)
[2024-08-08] MEDS: SCOPOLAMINE 1 MG/72 HR PATCH TRANSDERM ONE (00:04)
[2024-08-08 06:16] LABS: Basophils % (A) 0 %; Eosinophils # (A) 0.1 k/uL (0-0.7); Eosinophils % (A) 0 %; HCT 36.9 % (34.0-46.0); HGB 11.9 gm/dL (11.4-16.0); Lymphocytes % (A) 14 %; MCH 32.1 pg (25.0-35.0); MCHC 32.3 g/dL (31.0-37.0); MCV 99.2 fL (80.0-100.0); Mean Platelet Volume 7.4; Monocytes # (A) 0.7 k/uL (0-1.0); Monocytes % (A) 5 %; Neutrophils # (A) 11.7 k/uL (1.3-7.7); Neutrophils % (A) 80 %; Platelet Count 245 k/uL (150-450); RBC 3.72 m/uL (3.80-5.40); RDW 12.6 % (11.5-15.5); WBC 14.5 k/uL (3.8-10.6)
[2024-08-08 08:19] VITALS: BP 109/71; PULSE 71; RESP 14; TEMP 98.2
[2024-08-08] MEDS: VENLAFAXINE HCL ER 75 MG CAP PO SCH (09:18)
[2024-08-08] MEDS: LORATADINE 10 MG TAB PO SCH (09:18)
--- NOTE | 2024-08-08 10:40 | P.PN ---
Subjective Progress Note Date: 08/08/24 Principal diagnosis: #1 bilateral mastectomy for mastodynia Saloni is a 43-year-old female status post bilateral mastectomy for mastodynia refractory to conservative therapy. Postoperatively she is doing well with no complaints. She is tolerating diet without difficulty and her pain is under control. Hgb 11.9, white count 14.5. Objective - Vital Signs Vital signs: Vital Signs Temp 98.2 F 08/08/24 08:00 Pulse 71 08/08/24 08:00 Resp 14 08/08/24 08:00 BP 109/71 08/08/24 08:00 Pulse Ox 99 08/08/24 08:00 FiO2 Intake & Output 08/07/24 08/08/24 08/08/24 18:59 06:59 18:59 Intake Total 1350 340 Output Total 1100 55 20 Balance 250 285 -20 Weight 66 kg Intake: IV 1350 Oral 340 Output: Drainage 55 20 Left Breast 10 10 Right Breast 45 10 Urine 1050 Estimated Blood Loss 50 Other: # Voids 1 1 - Constitutional General appearance: Present: cooperative - EENT Eyes: Present: EOMI ENT: Present: hearing grossly normal - Neck Neck: Present: normal ROM - Respiratory Respiratory: bilateral: CTA - Cardiovascular Rhythm: regular Heart sounds: normal: S1, S2 - Integumentary Integumentary Comment(s): Dry bilateral, small seroma on the left side in the drain was stripped for an additional 20 cc of fluid and complete resolution of the seroma MANUEL output is minimal and serous in nature on both sides Integumentary: Present: normal turgor - Labs CBC & Chem 7: 08/08/24 05:55 Labs: Abnormal Lab Results - Last 24 Hours (Table) 08/08/24 Range/Units 05:55 WBC 14.5 H (3.8-10.6) k/uL RBC 3.72 L (3.80-5.40) m/uL Neutrophils # 11.7 H (1.3-7.7) k/uL Assessment and Plan Assessment: Patient doing well postop day #1 Plan: Discharge home to be followed as an outpatient Teach patient drain care
--- NOTE | 2024-08-08 10:42 | P.DS ---
Providers Date of admission: 08-07-24 Expected date of discharge: 08/08/24 Attending physician: Rani Julio Consults: 08/07/24 11:42 Consult Physician Routine Consulting Provider: Domingo Morton Consult Reason/Comments: medical managment Do you want consulting provider notified?: Yes Primary care physician: Kalpana Da Silva [facility] [place] Course: The patient is postop day #1 bilateral mastectomy for mastodynia. Postoperatively she is doing well she is tolerating diet without difficulty her pain is under control and her MANUEL output is serous and minimal. Hemoglobin is 11.9 and white count 14.5. Plan - Discharge Summary Discharge Rx Participant: No New Discharge Prescriptions: New oxyCODONE HCL [OxyIR] 5 mg PO Q6H PRN #14 tab PRN Reason: Breakthrough Pain No Action Venlafaxine HCl ER [Effexor Xr] 75 mg PO QAM Cetirizine HCl [Zyrtec] 10 mg PO QAM Discharge Medication List Venlafaxine HCl ER [Effexor Xr] 75 mg PO QAM 02/11/23 [History] Cetirizine HCl [Zyrtec] 10 mg PO QAM 08/01/24 [History] oxyCODONE HCL [OxyIR] 5 mg PO Q6H PRN #14 tab 08/07/24 [Rx] Follow up Appointment(s)/Referral(s): Rani Julio MD [STAFF PHYSICIAN] - 1 Week Activity/Diet/Wound Care/Special Instructions: Do not Drive until seen by Dr. Navarrete Teach drain care Wear Solis wrap at all times May shower after 48 hours Discharge Disposition: HOME SELF-CARE
--- NOTE | 2024-08-08 12:10 | P.CONS ---
History of Present Illness - Reason for Consult Consult date: 08/08/24 Medical management Requesting physician: Rani Julio - Chief Complaint Mastectomy - History of Present Illness There is some confusion about which patient has left hence consult was not seen by me yesterday. Very pleasant 43-year-old patient, will be in trouble for years with cyst growing in both the breast. Enlarging and discharging. Her breast have been very painful and she has had different opinions. With no resolve. To the point even walking public places she would have to cover the chest. Patient has undergone bilateral mastectomy. Has 2 MANUEL drains. 1 on the left. About 30 cc today and mL on the right with 20 cc. She also takes medications for depression and anxiety and for allergies. at the bedside. No nausea vomiting. Pain controlled. She already feels better after surgery. Review of systems: GEN.: None EYES: None HEENT: None NECK: None RESPIRATORY: None CARDIOVASCULAR: None GASTROINTESTINAL: None GENITOURINARY: None MUSCULOSKELETAL: None LYMPHATICS: None HEMATOLOGICAL: None PSYCHIATRY: [Bit anxious NEUROLOGICAL: None Social history: . Has 2 daughters at home 16 and 13 years old. Former smoker. Stopped in 2009. Does vaping on occasion. Physical examination: VITAL SIGNS: 98.2, 71, 14, 109 x 71, 99% room GENERAL: Sitting up, BMI 23.5,. EYES: Pupils equal. Conjunctiva brandy l. HEENT: External appearance of nose and ears normal, oral cavity grossly normal. NECK: JVD not raised; masses not palpable. HEART: First and second heart sounds are normal; no edema. LUNGS: Respiratory rate normal; clear to auscultation. ABDOMEN: Soft, nontender, liver spleen not palpable, no masses palpable. PSYCH: Alert and oriented x3; mood and affect brandy l. MUSCULOSKELETAL:No Clubbing/cyanosis;muscles-grossly intact NEUROLOGICAL: Cranial nerves grossly intact; no facial asymmetry, power and se nsation grossly intact. LYMPHATICS: No lymph nodes palpable in the axilla and neck Chest wall: Dressing in place. 2 MANUEL drains. Tenderness INVESTIGATIONS, reviewed in the clinical context: August 08, 2024: White count 14.5 hemoglobin 11.9 platelets 245 Assessment plan: -Bilateral mastectomy for a very unpleasant condition bilateral mastodynia. Patient's bilateral MANUEL drains. Pain medications. -Leukocytosis, likely reactive. No clinical evidence of infection. No respiratory urinary symptoms. -Unspecified depression anxiety Effexor XR 75 mg a day -Chronic allergies Zyrtec Care was discussed with patient at the bedside. Questions answered. Thank you Corrie Mitchell Past Medical History Past Medical History: No Reported History Additional Past Medical History / Comment(s): depression History of Any Multi-Drug Resistant Organisms: None Reported Past Surgical History: Section, Tonsillectomy Additional Past Surgical History / Comment(s): section X2, hemorrhoidectomy X2. Past Anesthesia/Blood Transfusion Reactions: No Reported Reaction Smoking Status: Former smoker, Vaper - Past Family History Mother Family Medical History: Cancer Additional Family Medical History / Comment(s): Skin cancer. Medications and Allergies Home Medications Medication Instructions Recorded Confirmed Type Venlafaxine HCl ER [Effexor Xr] 75 mg PO QAM 02/11/23 08/07/24 History Cetirizine HCl [Zyrtec] 10 mg PO QAM 08/01/24 08/07/24 History oxyCODONE HCL [OxyIR] 5 mg PO Q6H PRN #14 tab 08/07/24 Rx Allergies Allergy/AdvReac Type Severity Reaction Status Date / Time metronidazole [From Flagyl] Allergy Rash/Hives Verified 08/07/24 07:07 Penicillins Allergy Rash/Hives Verified 08/07/24 07:07 Physical Exam Vitals: Vital Signs Temp Pulse Pulse Resp BP BP BP 08/08/24 08:00 98.2 F 71 14 109/71 109/71 08/08/24 00:00 98.7 F 63 16 95/62 08/07/24 19:18 99.4 F 79 16 101/64 08/07/24 16:06 97.1 F L 72 16 105/71 08/07/24 14:50 78 16 102/69 08/07/24 14:11 76 16 111/78 08/07/24 13:50 90 16 114/79 08/07/24 13:35 84 16 111/69 08/07/24 13:18 86 16 110/72 08/07/24 13:13 100 F H 84 16 111/72 08/07/24 12:58 98.5 F 95 16 115/75 08/07/24 12:30 89 17 129/73 08/07/24 12:15 92 16 133/74 08/07/24 12:02 97.7 F 99 14 135/90 Pulse Ox 08/08/24 08:00 99 08/08/24 00:00 98 08/07/24 19:18 96 08/07/24 16:06 08/07/24 14:50 08/07/24 14:11 08/07/24 13:50 08/07/24 13:35 08/07/24 13:18 95 08/07/24 13:13 95 08/07/24 12:58 95 08/07/24 12:30 98 08/07/24 12:15 100 08/07/24 12:02 100 Intake and Output 08/07/24 08/08/24 08/08/24 22:59 06:59 14:59 Intake Total 100 240 Output Total 500 55 70 Balance -400 185 -70 Intake: Oral 100 240 Output: Drainage 55 70 Left Breast 10 40 Right Breast 45 30 Urine 500 Other: # Voids 1 1 Results CBC & Chem 7: 08/08/24 05:55 Labs: Abnormal Lab Results - Last 24 Hours (Table) 08/08/24 Range/Units 05:55 WBC 14.5 H (3.8-10.6) k/uL RBC 3.72 L (3.80-5.40) m/uL Neutrophils # 11.7 H (1.3-7.7) k/uL
== END 2024-08-08 11:10 | disposition home or self-care (01) ==
LOC: OR 06:39 → 4FBP 11:55 → OR 08-08 11:10
PROVIDERS: ATTEND Surgery
DX: N60.92 Unspecified benign mammary dysplasia of left breast (principal); N60.91 Unspecified benign mammary dysplasia of right breast; N60.12 Diffuse cystic mastopathy of left breast; N60.11 Diffuse cystic mastopathy of right breast; N60.41 Mammary duct ectasia of right breast; N60.02 Solitary cyst of left breast; N60.01 Solitary cyst of right breast; G89.18 Other acute postprocedural pain; F41.1 Generalized anxiety disorder; F32.A Depression, unspecified; D72.829 Elevated white blood cell count, unspecified; F17.290 Nicotine dependence, other tobacco product, uncomplicated; Z79.899 Other long term (current) drug therapy; Z88.0 Allergy status to penicillin; Z88.8 Allergy status to other drugs, medicaments and biological substances
CPT/HCPCS: 19303; 81025; 64450; 88305; 85025; 88307; J2250; J0330; J1644 ×2; J1100; J2710; J0690; J2405; J2003; J3010; J2795; J2704; J2371; J1596

== ENCOUNTER → 2024-08-16 | Outpatient (CLI) | payer BC ==
--- NOTE | 2024-08-16 10:55 | P.BCPO ---
Progress Note - Text Progress Note Date: 08/16/24 Saloni is status post bilateral mastectomy on 08-07-24. Her pathology showed right breast: fibrocystic changes right axilla: benign node left breast: focal flat epithelaial atypia Examination: Lungs: Clear Heart: Regular rate and rhythm Incision: Clean and dry bilaterally MANUEL output less than 40 cc both sides Impression: Patient doing well postoperatively Plan: DC MANUEL drains Patient is going to consider whether she would want reconstruction in the future Follow-up in 6 months sooner if patient develops seroma Post Op Education - Post Op Education Post Op Education Provided Date: 08/16/24 - Functional Assessment Performed?: Yes (arm abduction passed) Path Report - Was patient given path report? Path Report Date Given: 08/16/24
[2024-08-16 11:28] VITALS: BP 123/80; PULSE 80; RESP 17; TEMP 98.4
== END ==
LOC: WWCWWP 10:22
PROVIDERS: ATTEND Surgery
DX: N64.89 Other specified disorders of breast (principal); N60.11 Diffuse cystic mastopathy of right breast; D24.1 Benign neoplasm of right breast; Z90.13 Acquired absence of bilateral breasts and nipples; Z88.8 Allergy status to other drugs, medicaments and biological substances; Z88.0 Allergy status to penicillin

== ENCOUNTER → 2024-09-11 | Outpatient (CLI) | payer BC ==
[2024-09-11 08:06] VITALS: BP 136/88; PULSE 65; RESP 17; TEMP 97.5
--- NOTE | 2024-09-11 08:59 | P.PN ---
Subjective Progress Note Date: 09/11/24 09-11-24 Saloni is status post bilateral mastectomy on 08-07-24 this was done secondary to bilateral breast pain. The breast pain has resolved. Her pathology showed right breast: fibrocystic changes right axilla: benign node left breast: focal flat epithelaial atypia Examination: Lungs: Clear Heart: Regular rate and rhythm Incision: Clean and dry bilaterally, lateral seromas Impression: Patient doing well postoperatively Plan: Patient is going to consider whether she would want reconstruction in the future Aspiration of bilateral chest wall seromas Following informed consent: The area of the right chest wall was prepped using alcohol. An 18-gauge needle on a 20 cc syringe was used to aspirate 65 cc of straw-colored fluid with complete resolution of the seroma. The area on the left chest wall was prepped using alcohol. An 18-gauge needle on a 20 cc syringe was used to aspirate 90 cc of straw-colored fluid with complete resolution of the seroma. Follow up 1 month for repeat examination The patient will call sooner if she has any questions or concerns Additional CC's: Kalpana Da Silva Objective - Vital Signs Vital signs: Vital Signs Temp 97.5 F L 09/11/24 08:02 Pulse 65 09/11/24 08:02 Resp 17 09/11/24 08:02 BP 136/88 09/11/24 08:02 Pulse Ox 99 09/11/24 08:02 FiO2 Intake & Output 09/10/24 09/11/24 09/11/24 18:59 06:59 18:59 Weight 65.771 kg
== END ==
LOC: WWCWWP 07:54
PROVIDERS: ATTEND Surgery
DX: N63.31 Unspecified lump in axillary tail of the right breast (principal); Z90.13 Acquired absence of bilateral breasts and nipples; Z88.1 Allergy status to other antibiotic agents; Z88.0 Allergy status to penicillin